=== PATIENT | female | born 1985 | race Caucasian/White ===

== ENCOUNTER 2016-11-05 12:45 | Emergency (ER) | payer BC ==
[~2016-11-05 12:45] MED LIST: CEPH500C3 PO; LABE100 PO; LABE100T2 PO; OXYC-360 PO; PRENTAB72 PO
--- NOTE | 2016-11-05 13:44 | PD ---
HPI Chief Complaint Contractions Date Seen: Nov 05, 2016 Time Seen: 13:40 Travel History International Travel<30 Days: No Contact w/Intl Traveler<30Days: No Known Affected Area: No History of Present Illness HPI Patient is 31-year-old white female who is at 36 weeks and 6 days who comes in for contractions. Patient states that she had painful contractions at 4:30 this morning that improved over the next couple of hours and now she complains of occasional cramping with pelvic pressure. She is a history of section at 35-36 weeks for preeclampsia with her last Para: 1 : 2 History Past Medical History Medical History: Denies Significant Hx Obstetric History Obstetric History section Family History Family History: Negative Social History Alcohol Use: No Tobacco Use: No Substance Abuse: No Allergies-Medications (Allergen,Severity, Reaction): Coded Allergies: No Known Allergies (Unverified , 04/08/13) Home Meds Active Scripts Cephalexin (Keflex)500 Mg Cap1 Tab PO Q6 5 Days Prov:Ryan Corrales MD 04/08/13 Reported Medications Vit W/ Ferrous Fumara () Tab1 Tab PO DAILY 04/08/13 Labetalol HCl (Trandate 100 mg Tab)100 Mg [id number] Mg PO DAILY 04/08/13 Labetalol Hcl 100 Mg [id number] Mg PO BID 04/03/13 Oxycodone/Acetaminophen (Percocet)5 Mg/325 Mg Tab1 Tab PO Q4HPRN #30 TAB FOR PAIN 04/03/13 Vit W/ Ferrous Fumara () Tab1 Tab PO DAILY 03/30/13 Review of Systems Except as stated in HPI: all other systems reviewed are Neg Physical Exam Narrative GENERAL: Well-nourished, well-developed patient. SKIN: Warm and dry. HEAD: Normocephalic and atraumatic. EYES: No scleral icterus. No injection or drainage. ENT: No nasal drainage noted. Mucous membranes pink. Airway patent. NECK: Supple, trachea midline. No JVD. CARDIOVASCULAR: Regular rate and rhythm without murmurs, gallops, or rubs. RESPIRATORY: Breath sounds equal bilaterally. No accessory muscle use. BREASTS: Bilateral exam showed no masses , no retractions, no nipple discharge. ABDOMEN/GI: Abdomen soft, non-tender, bowel sounds present, no rebound, no guarding Gravid to [-] weeks size Fundal Height: [34-] GENITOURINARY: External Genitalia: intact and normal in appearance BUS glands: [Normal-] Cervix: [Posterior-] Dilatation: [Fingertip] Effacement: [-50] Station: [-3-] Presentation: [-Vertex] Membranes: Intact Uterine Contractions: [-Irregular] FHT's: Category: [1-] Baseline: [-145] Reactive: [-Moderate] Variability: [-Moderate] Decels: Absent EXTREMITIES: No cyanosis or edema. BACK: Nontender without obvious deformity. No CVA tenderness. NEUROLOGICAL: Awake and alert. Motor and sensory grossly within normal limits. Five out of 5 muscle strength in all muscle groups. Normal speech. Data Data Vital Signs Reviewed: Yes MDM Plan Patient with occasional irregular irritable contractions that have improved throughout the day. Patient is a 36 weeks 6 days cervix has not changed since her exam yesterday which was 1 cm. Recommend decreased activity today with pelvic rest increase hydration and follow-up to her OB appointment next week Return to the OB ED for worsening symptoms Diagnosis Diagnosis: Primary Impression: False labor before 37 completed weeks of gestation Additional Impression: 36 weeks gestation of Disposition: 01 DISCHARGE HOME Tessy Faria MD Nov 05, 2016 13:44
== END 2016-11-05 14:34 | disposition home or self-care (01) ==
LOC: HOBED 12:45
DX: O47.03 False labor before 37 completed weeks of gestation, third trimester (principal); Z3A.36 36 weeks gestation of pregnancy
CPT/HCPCS: 99284

== ENCOUNTER 2016-11-21 05:08 | Inpatient (IN) | payer BC ==
[~2016-11-21] VITALS: Ht 154.9 cm; Wt 68.5 kg
[2016-11-21] VITALS (18 sets, daily range): BP systolic 99–124; BP diastolic 41–87; PULSE 71–114; RESP 16–18; TEMP 97.8–99.3; O2SAT 96–99
[2016-11-21] MEDS ORDERED: LACTATED RINGER'S 1000 ML IV ONE (05:30)
[2016-11-21] MEDS ORDERED: CITRIC ACID-SODIUM CITRATE LIQ 30 ML UDC PO SCH (05:30)
[2016-11-21] MEDS ORDERED: ceFAZolin 2 GM PREMIX 50 ML IV SCH (05:30)
[2016-11-21 06:09] LABS: AUTOMATED NEUTROPHIL # 7.8 TH/MM3 (1.8-7.7); BASOPHIL % 0.4 % (0.0-2.0); EOSINOPHIL # 0.1 TH/MM3 (0-0.4); EOSINOPHIL % 1.3 % (0.0-4.0); HEMATOCRIT 32.9 % (35.0-46.0); HEMO FLAGS DIFF FINAL; LYMPH % 16.8 % (9.0-44.0); LYMPHOCYTE # 1.8 TH/MM3 (1.0-4.8); MEAN CELL VOLUME 82.8 FL (80.0-100.0); MEAN CORPUSCULAR HEMOGLOBIN 29.1 PG (27.0-34.0); MEAN CORPUSCULAR HGB CONC 35.1 % (32.0-36.0); MONO % 7.7 % (0.0-8.0); NEUT % 73.8 % (16.0-70.0); PLATELET COUNT 291 TH/MM3 (150-450); RED BLOOD COUNT 3.98 MIL/MM3 (4.00-5.30); RED CELL DISTRIBUTION WIDTH 13.7 % (11.6-17.2); WHITE BLOOD COUNT 10.6 TH/MM3 (4.0-11.0)
[2016-11-21 06:13] LABS: BACTERIA, URINE OCC /hpf; BLOOD, URINE MOD (NEG); COMMENT (UR) CULTURE INDICATED; CULTURE IF INDICATED CULTURE INDICATED; GLUCOSE,URINE NEG (NEG); KETONE, URINE TRACE mg/dL (NEG); MUCUS URINE FEW /lpf (OCC); NITRITE,URINE NEG (NEG); SQUAMOUS EPITHELIAL CELL URINE 16 /hpf (0-5); TRANSITIONAL EPI CELLS, URINE 1 /hpf; URINE COLOR YELLOW (YELLW/STRAW)
[2016-11-21] MEDS: LACTATED RINGER'S 1000 ML IV SCH ×2 (06:47→12:10)
[2016-11-21] MEDS ORDERED: OXYTOCIN 10 UNIT/ML AMP ONE (06:55)
[2016-11-21] MEDS ORDERED: CARBOPROST TROMETHAMINE 250 MCG/ML VIAL ONE (06:55)
[2016-11-21] MEDS ORDERED: METHYLERGONOVINE MALEATE 0.2 MG/ML VIAL ONE (06:55)
--- NOTE | 2016-11-21 07:52 | PD.OB.DELI ---
Procedure Note Section Procedure Pre Op Diagnosis term, desired repeat Post Op Diagnosis: Post Op Diagnosis same, delivered Performed by Salima Khan Procedure: Repeat Low Transverse Sec Indication for delivery: Desired elective repeat Informed consent obtained: For procedure Confirmed correct: Patient, Procedure, Site, Time-out taken Anesthesia: Epidural Medication prior to procedure: As documented in eMAR Monitoring during procedure: Blood pressure monitoring, groundwater monitoring technician Urinary catheter: Inserted using sterile technique, To dependent drainage Sterile preparation: With 2% chlorexidine (Hibiclens) Position: Supine with wedge to right side Operative Features Skin Incision: Pfannenstiel Uterine Incision: Low transverse w/knife / blunt ext Membranes Ruptured: Artificially Presentation: Occiput anterior Delivery of infant: Assisted : Female One Minute : 9 Five Minute : 9 Weight: 6 14 Status of infant: Viable, Cord blood Placenta delivered: Intact, Retained Medications: Antibiotics, Oxytocin Estimated blood loss: average Procedure tolerated: Well Maternal Condition: Stable Condition: Stable Procedure in detail 45 seconds before cord clamp Salima Khan MD Nov 21, 2016 07:52
[2016-11-21] MEDS ORDERED: MORPHINE SULFATE PF 5 MG/10 ML VIAL ONE (07:54)
[2016-11-21] MEDS ORDERED: SIMETHICONE 80 MG CHEWABLE TAB PO PRN (08:00)
[2016-11-21] MEDS ORDERED: SODIUM CHLORIDE 0.9% FLUSH 10 ML FLUSH IV FLUSH PRN (08:00)
[2016-11-21] MEDS ORDERED: ONDANSETRON HCL 4 MG/2 ML VIAL IV PUSH PRN (08:00)
[2016-11-21] MEDS ORDERED: OXYTOCIN 30 UNITS-500ML PREMIX 500 ML IV ONE (08:00)
[2016-11-21] MEDS ORDERED: oxyCODONE/ACETAMINOPHEN 5 MG/325 MG TAB PO PRN (08:00)
[2016-11-21] MEDS ORDERED: OXYTOCIN 30 UNITS-500ML PREMIX 500 ML ONE (08:33)
[2016-11-21] MEDS ORDERED: SODIUM CHLORIDE 0.9% FLUSH 10 ML FLUSH IV FLUSH SCH (09:00)
[2016-11-21] MEDS ORDERED: LACTATED RINGER'S 1000 ML INJ 1,000 ML IV SCH (12:52)
[2016-11-21] MEDS ORDERED: OXYTOCIN 30 UNITS-500ML PREMIX 500 ML IV PRN (18:00)
[2016-11-21] MEDS: IBUPROFEN 600 MG TAB PO PRN (18:30)
[2016-11-22 00:36] VITALS: BP 89/79; PULSE 79; RESP 15; TEMP 97.9
[2016-11-22] MEDS: IBUPROFEN 600 MG TAB PO PRN ×4 (00:44→20:45)
[2016-11-22 00:46] VITALS: BP 100/74
[2016-11-22 04:20] VITALS: BP 89/59; PULSE 80; RESP 15; TEMP 97.8
[2016-11-22 06:58] LABS: AUTOMATED NEUTROPHIL # 9.5 TH/MM3 (1.8-7.7); BASOPHIL % 0.1 % (0.0-2.0); EOSINOPHIL # 0.1 TH/MM3 (0-0.4); EOSINOPHIL % 0.8 % (0.0-4.0); HEMATOCRIT 27.5 % (35.0-46.0); HEMO FLAGS DIFF FINAL; LYMPHOCYTE # 1.7 TH/MM3 (1.0-4.8); MEAN CELL VOLUME 84.7 FL (80.0-100.0); MEAN CORPUSCULAR HGB CONC 34.3 % (32.0-36.0); MONO % 8.7 % (0.0-8.0); NEUT % 76.4 % (16.0-70.0); PLATELET COUNT 205 TH/MM3 (150-450); RED BLOOD COUNT 3.25 MIL/MM3 (4.00-5.30); RED CELL DISTRIBUTION WIDTH 14.1 % (11.6-17.2); WHITE BLOOD COUNT 12.5 TH/MM3 (4.0-11.0)
[2016-11-22 07:20] VITALS: BP 101/73; PULSE 86; RESP 20; TEMP 98.1
--- NOTE | 2016-11-22 09:32 | HHI.OB ---
Subjective Post Operative Day: 1 Remarks no complaints, BP low overnight but pt not dizzy Objective Vitals/I&O Vital Signs Date Time Temp Pulse Resp B/P Pulse Ox O2 Delivery O2 Flow Rate FiO2 11/22/16 04:20 97.8 11/22/16 04:20 80 15 89/59 11/22/16 00:46 100/74 11/22/16 00:36 79 11/22/16 00:36 89/79 11/22/16 00:36 15 11/22/16 00:36 97.9 11/21/16 19:28 97.8 76 16 102/64 11/21/16 14:20 16 11/21/16 13:20 71 18 106/74 11/21/16 13:20 98.0 11/21/16 12:20 16 11/21/16 10:57 18 11/21/16 10:03 99.3 17 11/21/16 10:03 79 104/77 Result Diagram: 11/22/16 0631 Objective Remarks GENERAL: Well-nourished, well-developed patient. CARDIOVASCULAR: Regular rate and rhythm without murmurs, gallops, or rubs. RESPIRATORY: Breath sounds equal bilaterally. No accessory muscle use. ABDOMEN/GI: Abdomen soft, non-tender, bowel sounds present. Incision: dressing Clean, dry and intact. Fundus: Firm, non-tender at umbilicus. GENITOURINARY: Light to moderate bleeding. EXTREMITIES: No cyanosis or edema, non-tender, without signs of DVT. Medications and IVs Current Medications Medications (Trade) Dose Ordered Sig/Walter Route Start Time Stop Time Status Last Admin (Lr 1000 ml Inj) 1,000 ml @ 150 mls/hr Q6H40M IV 11/21/16 05:30 11/21/16 12:10 (NS Flush) 2 ml BID IV FLUSH 11/21/16 09:00 (NS Flush) 2 ml UNSCH PRN IV FLUSH 11/21/16 08:00 (Mylicon Chew) 80 mg QID PRN PO 11/21/16 08:00 (Percocet 5-325 Mg) 1 tab Q4H PRN PO 11/21/16 08:00 (Percocet 5-325 Mg) 2 tab Q4H PRN PO 11/21/16 08:00 (Carline-Colace) 2 tab Q12H PRN PO 11/21/16 08:00 (M-M-R Ii Inj) 0.5 ml ONCE ONCE SQ 11/22/16 16:00 11/22/16 16:01 (Boostrix Inj) 0.5 ml ONCE ONCE IM 11/22/16 16:00 11/22/16 16:01 (Zofran Inj) 4 mg Q6H PRN IV PUSH 11/21/16 08:00 (Motrin) 600 mg Q6H PRN PO 11/21/16 18:15 11/22/16 07:14 Assessment/Plan Problem List: (1) S/P repeat low transverse Assessment and Plan POD #1 repeat LSTC doing well Discharge Planning routine Attending Attestation pt seen by Jaida Vines MD Nov 22, 2016 09:32
[2016-11-22] MEDS ORDERED: MEASLES, MUMPS, RUBELLA VACCINE 0.5 ML VIAL SQ ONE (16:00)
[2016-11-22] MEDS ORDERED: DIPHTH/TETANUS/ACEL PERTUSSIS (BOOSTER) 0.5 ML VIAL/PFS IM ONE (16:00)
[2016-11-22 20:41] VITALS: BP 109/70; PULSE 94; RESP 15; TEMP 98.3
[2016-11-22] MEDS: oxyCODONE/ACETAMINOPHEN 5 MG/325 MG TAB PO PRN (20:44)
[2016-11-23] MEDS: oxyCODONE/ACETAMINOPHEN 5 MG/325 MG TAB PO PRN ×4 (03:09→21:32)
[2016-11-23] MEDS: IBUPROFEN 600 MG TAB PO PRN ×4 (03:09→21:32)
[2016-11-23 08:50] VITALS: BP 110/73; PULSE 93; RESP 18; TEMP 97.9; O2SAT 97
[2016-11-23] MEDS: DOCUSATE SODIUM 50 MG/SENNA 8.6 MG TAB PO PRN ×2 (08:52→21:28)
--- NOTE | 2016-11-23 10:09 | HHI.OB ---
Subjective Post Operative Day: 2 Remarks +flatus, , pt may want to go home today if baby cleared Objective Vitals/I&O Vital Signs Date Time Temp Pulse Resp B/P Pulse Ox O2 Delivery O2 Flow Rate FiO2 11/22/16 20:41 98.3 94 15 109/70 Result Diagram: 11/22/16 0631 Objective Remarks GENERAL: Well-nourished, well-developed patient. CARDIOVASCULAR: Regular rate and rhythm without murmurs, gallops, or rubs. RESPIRATORY: Breath sounds equal bilaterally. No accessory muscle use. ABDOMEN/GI: Abdomen soft, non-tender, bowel sounds present. Incision: Clean, dry and intact. Fundus: Firm, non-tender at umbilicus. GENITOURINARY: Light to moderate bleeding. EXTREMITIES: No cyanosis or edema, non-tender, without signs of DVT. Medications and IVs Current Medications Medications (Trade) Dose Ordered Sig/Walter Route Start Time Stop Time Status Last Admin (Lr 1000 ml Inj) 1,000 ml @ 150 mls/hr Q6H40M IV 11/21/16 05:30 11/21/16 12:10 (NS Flush) 2 ml BID IV FLUSH 11/21/16 09:00 (NS Flush) 2 ml UNSCH PRN IV FLUSH 11/21/16 08:00 (Mylicon Chew) 80 mg QID PRN PO 11/21/16 08:00 (Percocet 5-325 Mg) 1 tab Q4H PRN PO 11/21/16 08:00 11/23/16 08:53 (Percocet 5-325 Mg) 2 tab Q4H PRN PO 11/21/16 08:00 (Carline-Colace) 2 tab Q12H PRN PO 11/21/16 08:00 11/23/16 08:52 (Zofran Inj) 4 mg Q6H PRN IV PUSH 11/21/16 08:00 (Motrin) 600 mg Q6H PRN PO 11/21/16 18:15 11/23/16 08:53 Assessment/Plan Problem List: (1) S/P repeat low transverse Assessment and Plan POD #2 repeat LSTC doing well Discharge Planning routine Attending Attestation pt seen by Jaida Vines MD Nov 23, 2016 10:09
[2016-11-23] MEDS ORDERED: OXYC1TAB63 PO (10:11)
[2016-11-23] MEDS ORDERED: IBUP-232 PO (10:11)
--- NOTE | 2016-11-23 10:11 | HHI.DCPOC ---
Discharge Care Plan Your Health Problems Are: Pelvic pain Report Symptoms to Your Doctor -Temperate above 100.5 degrees -Redness, of incision or excessive or foul smelling drainage -Unusual pain or calf pain -Increased vaginal bleeding -Painful or difficulty urinating -Feelings of extreme sadness or anxiety after 2 weeks Goals to Promote Your Health * To prevent worsening of your condition and complications * To maintain your health at the optimal level Directions to Meet Your Goals Take your medications as prescribed Follow your dietary instruction Follow activity as directed Ensure plenty of rest for recovery Drink fluids for hydration Keep your appointments as scheduled Take your immunizations and boosters as scheduled If your symptoms worsen call your PCP, if no PCP go to Urgent Care Center or Emergency Room Smoking is Dangerous to Your Health. Avoid second hand smoke Call the 24-hour crisis hotline for domestic abuse at Jaida Vasquez MD Nov 23, 2016 10:11
[2016-11-23 20:37] VITALS: BP 136/88; PULSE 81; RESP 17; TEMP 98.1
[2016-11-24] MEDS: IBUPROFEN 600 MG TAB PO PRN ×2 (03:42→09:58)
[2016-11-24] MEDS: oxyCODONE/ACETAMINOPHEN 5 MG/325 MG TAB PO PRN ×3 (03:42→12:40)
[2016-11-24 08:15] VITALS: BP 113/75; PULSE 100; RESP 16; O2SAT 99
[2016-11-24 08:20] VITALS: TEMP 97.6
--- NOTE | 2016-11-24 09:16 | HHI.OB ---
Subjective Post Operative Day: 3 Remarks s/p scheduled RLTCD with Dr. Khan Objective Vitals/I&O Vital Signs Date Time Temp Pulse Resp B/P Pulse Ox O2 Delivery O2 Flow Rate FiO2 11/24/16 08:15 100 16 113/75 99 11/23/16 20:37 98.1 81 17 136/88 Result Diagram: 11/22/16 0631 Objective Remarks GENERAL: Well-nourished, well-developed patient. CARDIOVASCULAR: Regular rate and rhythm without murmurs, gallops, or rubs. RESPIRATORY: Breath sounds equal bilaterally. No accessory muscle use. ABDOMEN/GI: Abdomen soft, non-tender, bowel sounds present. Incision: Clean, dry and intact. Fundus: Firm, non-tender at umbilicus. GENITOURINARY: Light to moderate bleeding. EXTREMITIES: No cyanosis or edema, non-tender, without signs of DVT. Medications and IVs Current Medications Medications (Trade) Dose Ordered Sig/Walter Route Start Time Stop Time Status Last Admin (Lr 1000 ml Inj) 1,000 ml @ 150 mls/hr Q6H40M IV 11/21/16 05:30 11/21/16 12:10 (NS Flush) 2 ml BID IV FLUSH 11/21/16 09:00 (NS Flush) 2 ml UNSCH PRN IV FLUSH 11/21/16 08:00 (Mylicon Chew) 80 mg QID PRN PO 11/21/16 08:00 (Percocet 5-325 Mg) 1 tab Q4H PRN PO 11/21/16 08:00 11/24/16 08:18 (Percocet 5-325 Mg) 2 tab Q4H PRN PO 11/21/16 08:00 (Carline-Colace) 2 tab Q12H PRN PO 11/21/16 08:00 11/23/16 21:28 (Zofran Inj) 4 mg Q6H PRN IV PUSH 11/21/16 08:00 (Motrin) 600 mg Q6H PRN PO 11/21/16 18:15 11/24/16 03:42 Assessment/Plan Problem List: (1) S/P repeat low transverse Assessment and Plan POD #3 doing well meeting all d/c criteria d/c to home with office f/u 1-2 wks Discharge Planning routine Xochilt Ngo MD Nov 24, 2016 09:16
== END 2016-11-24 17:29 | disposition home or self-care (01) | DRG 766 ==
LOC: H2EB 05:08 → H1EA 09:30
PROVIDERS: ADMIT Obstetrics & Gynecology; ATTEND Obstetrics & Gynecology
PROC: 10D00Z1 Extraction of Products of Conception, Low, Open Approach (ICD-10-PCS; principal; 2016-11-21)
DX: O34.211 Maternal care for low transverse scar from previous cesarean delivery (principal); Z37.0 Single live birth; Z3A.39 39 weeks gestation of pregnancy
CPT/HCPCS: 59025; 81001; 85025; 86850; 86900; 86901; 87086; 90715; J0690; J2210; J2274; J2590; J7120